=== PATIENT | male | born 1965 | race Caucasian/White ===

== ENCOUNTER 2018-04-21 21:56 | Emergency (ER) | payer BC ==
--- NOTE | 2018-04-21 22:58 | ER Document Report ---
ED General - General Chief Complaint: Neck Pain >24hrs old Stated Complaint: NECK PAIN Time Seen by Provider: 04/21/18 22:39 Notes: Patient is a 52-year-old male that comes to the emergency department for chief complaint of pain in the right side of his neck radiating up to his right ear, states this is been bothering him intermittently for almost 1 week. He denies congestion, cough, sore throat, hearing loss, discharge from the ear. Patient also states that he has been getting intermittent discomfort in his chest for the past few days, saw his primary care provider, they switched his GERD medication as a result. He does report some current discomfort in the left side of his chest which is the same as the past few days. Denies shortness of breath, injury. Past medical history includes hypertension, hyperlipidemia, type 2 diabetes, and he states he had a negative cardiac cath 1 year ago. Patient states he took a full dose of aspirin for his ear pain about 1 hour ago. TRAVEL OUTSIDE OF THE [place] IN LAST 30 DAYS: No - Related Data Allergies/Adverse Reactions: No Known Allergies Allergy (Verified 04/22/18 00:02) Past Medical History - General Information source: Patient - Social History Smoking Status: Never Smoker Frequency of alcohol use: None Drug Abuse: None Lives with: Family Family History: Reviewed & Not Pertinent - Past Medical History Cardiac Medical History: Reports: Hx Hypercholesterolemia, Hx Hypertension Endocrine Medical History: Reports: Hx Diabetes Mellitus Type 2 GI Medical History: Reports: Hx Gastroesophageal Reflux Disease - Immunizations Hx Diphtheria, Pertussis, Tetanus Vaccination: Yes Review of Systems - Review of Systems Constitutional: No symptoms reported EENT: See HPI Cardiovascular: See HPI Respiratory: No symptoms reported Gastrointestinal: See HPI Genitourinary: No symptoms reported Male Genitourinary: No symptoms reported Musculoskeletal: No symptoms reported Skin: No symptoms reported Hematologic/Lymphatic: No symptoms reported Neurological/Psychological: No symptoms reported Physical Exam - Vital signs Vitals: Temp Pulse Resp BP Pulse Ox 97.8 F 103 H 20 148/73 H 94 04/21/18 22:08 04/21/18 22:08 04/21/18 22:08 04/21/18 22:08 04/21/18 22:08 - Notes Notes: GENERAL: Alert, interacts well. No acute distress. HEAD: Normocephalic, atraumatic. EYES: Pupils equal, round, and reactive to light. Extraocular movements intact. ENT: Oral mucosa moist, tongue midline. Normal oropharynx other than split uvula. Mild cerumen in the right ear with a tympanic membranes she has minimal erythema, no bulging, no joint effusion. No mastoid tenderness. No tragus tenderness. No other abnormality noted. NECK: Full range of motion. Supple. Trachea midline. Tenderness over the right anterior cervical chain. LUNGS: Clear to auscultation bilaterally, no wheezes, rales, or rhonchi. No respiratory distress. HEART: Regular rate and rhythm. No murmur ABDOMEN: Soft, non-tender. Non-distended. Bowel sounds present in all 4 quadrants. EXTREMITIES: Moves all 4 extremities spontaneously. No edema, normal radial and dorsalis pedis pulses bilaterally. No cyanosis. BACK: no cervical, thoracic, lumbar midline tenderness. No saddle anesthesia, normal distal neurovascular exam. NEUROLOGICAL: Alert and oriented x3. Normal speech. [cranial nerves II through XII grossly intact]. PSYCH: Normal affect, normal mood. SKIN: Warm, dry, normal turgor. No rashes or lesions noted. Course - Re-evaluation Re-evalutation: EKG shows sinus rhythm at a rate of 94, no T wave inversions or ST segment changes in consecutive leads, right bundle branch block noted. Normal axis. Chest x-ray unremarkable. CBC, chemistry unremarkable. Troponin is negative. On physical exam patient has lymphadenopathy on the right side of the cervical chain, he has some erythema of the tympanic membrane but no bulging or effusion. Remaining ENT exam is unremarkable. Discussed with patient. Recommended second troponin, he declines, he states he has been recently infrequently worked up for chest pain, he states that he believes this is reflux , he states that he has a follow-up EGD scheduled, he states that his symptoms worsened after aspirin but now he feels much improved and denies any current symptoms. He denies any shortness of breath. He did have borderline tachycardia but he states his symptoms have been going on for some time, he does not have any shortness of breath or dyspnea on exertion, he does not have any hypoxia, lower extremity swelling, or history of blood clot. Patient declines additional evaluation, states he would like to be treated for the ear/ lymph nodes and follow-up with his primary provider. He does agree to come back if he worsens. Given Carafate, dexamethasone while he was here, and discussed follow-up precautions. Patient states understanding and agreement. - Vital Signs Vital signs: Temp Pulse Resp BP Pulse Ox 98 F 100 20 125/70 95 04/22/18 00:26 04/22/18 00:26 04/22/18 00:26 04/22/18 00:26 04/22/18 00:26 - Laboratory Result Diagrams: 04/21/18 23:25 04/21/18 23:25 Laboratory results interpreted by me: 04/21/18 04/21/18 23:25 23:25 WBC 11.5 H BUN 24 H Glucose 169 H Discharge - Discharge Clinical Impression: Neck pain on right side Chest pain Qualifiers: Chest pain type: unspecified Qualified Code(s): R07.9 - Chest pain, unspecified Condition: Stable Disposition: HOME, SELF-CARE Additional Instructions: Your examination indicates lymph node swelling on the right side, borderline the ear examination in regards to the middle ear. Your workup does not show any concerning abnormalities. You have been medicated for the lymph nodes, because of ongoing reflux problems take the Carafate as prescribed along with your current medications, follow-up with your endoscopy. Return if you worsen including vomiting, black stools, severe pain in your chest or abdomen, passing out, fever, difficulty breathing, or any other concerning symptoms. Prescriptions: Fluticasone Propionate [Flonase Nasal [place] 50 Mcg/[place] 16 gm] 1 spray NASL Q12 #1 inhaler Sucralfate [Carafate 1 gm Tablet] 1 gm PO QID #20 tablet
--- NOTE | 2018-04-21 23:18 | RADIOLOGY REPORT (SQ) ---
EXAM DESCRIPTION: XR CHEST 1 VIEW COMPLETED DATE/TME: 04/21/2018 22:57 CLINICAL HISTORY: chest pain COMPARISON: None FINDINGS: Cardiac silhouette is within normal limits. There is no focal parenchymal or pleural disease. There is no acute osseous process visualized. IMPRESSION: No evidence of acute cardiopulmonary disease.
[2018-04-21 23:42] LABS: ABSOLUTE BASOPHILS # (AUTO) 0.1 10^3/uL (0.0-0.2); ABSOLUTE EOSINOPHILS # (AUTO) 0.2 10^3/uL (0.0-0.6); ABSOLUTE LYMPHOCYTES (AUTO) 2.5 10^3/uL (0.5-4.7); ABSOLUTE MONOCYTES (AUTO) 0.9 10^3/uL (0.1-1.4); ABSOLUTE NEUT (AUTO) 7.8 10^3/uL (1.7-8.2); BASOPHILS % (AUTO) 0.6 % (0-2); EOSINOPHILS % (AUTO) 2.1 % (0-6); HEMATOCRIT 40.4 % (37.9-51.0); HEMOGLOBIN 13.6 g/dL (13.5-17.0); LYMPHOCYTES % (AUTO) 21.5 % (13-45); MEAN CORPUSCULAR HEMOGLOBIN 28.3 pg (27.0-33.4); MEAN CORPUSCULAR HGB CONC 33.7 g/dL (32.0-36.0); MEAN CORPUSCULAR VOLUME 84 fl (80-97); PLATELET COUNT 248 10^3/uL (150-450); RED BLOOD COUNT 4.81 10^6/uL (4.35-5.55); RED CELL DISTRIBUTION WIDTH 13.7 % (11.5-14.0); SEGMENTED NEUTROPHILS % (AUTO) 67.8 % (42-78); TOTAL CELLS COUNTED % (AUTO) 100 %; WHITE BLOOD COUNT 11.5 10^3/uL (4.0-10.5)
[2018-04-21 23:56] LABS: ALANINE AMINOTRANSFERASE 28 U/L (21-72); ALKALINE PHOSPHATASE 49 U/L (38-126); ANION GAP 14 (5-19); ASPARTATE AMINO TRANSFERASE 24 U/L (17-59); BILIRUBIN,DIRECT 0.3 mg/dL (0.0-0.4); BILIRUBIN,TOTAL 0.7 mg/dL (0.2-1.3); BLOOD UREA NITROGEN 24 mg/dL (7-20); CALCIUM 9.4 mg/dL (8.4-10.2); CARBON DIOXIDE 23 mmol/L (22-30); CHLORIDE 100 mmol/L (98-107); GLUCOSE 169 mg/dL (75-110); POTASSIUM 4.1 mmol/L (3.6-5.0); SODIUM 137.4 mmol/L (137-145); TOTAL PROTEIN 6.9 g/dL (6.3-8.2)
[2018-04-22] MEDS ORDERED: SUCRALFATE 1 GM TABLET PO ONE (00:17)
[2018-04-22] MEDS ORDERED: DEXAMETHASONE SOD PHOS INJ 10 MG/1 ML VIAL IM ONE (00:17)
[2018-04-22 00:27] VITALS: BP 125/70
--- NOTE | 2018-04-22 08:50 | EKG REPORT ---
SEVERITY:- ABNORMAL ECG - SINUS RHYTHM RIGHT BUNDLE BRANCH BLOCK : Confirmed by: Jarvis William 22-Apr-2018 08:49:20
== END 2018-04-22 00:35 | disposition home or self-care (01) ==
LOC: ER 21:56
DX: M54.2 Cervicalgia (principal); R59.0 Localized enlarged lymph nodes; R07.9 Chest pain, unspecified; H61.21 Impacted cerumen, right ear; H92.01 Otalgia, right ear; K21.9 Gastro-esophageal reflux disease without esophagitis; Z79.899 Other long term (current) drug therapy; I10 Essential (primary) hypertension; E11.9 Type 2 diabetes mellitus without complications; I45.10 Unspecified right bundle-branch block
CPT/HCPCS: 93005; 99284; 96372; 36415; 85025; 80053; 84484; 71045; 93010; J1100